=== PATIENT | female | born 1980 | race Caucasian/White ===

== ENCOUNTER 2022-12-20 13:09 | Inpatient (IN) | payer OTHER ==
[2022-12-20 14:10] VITALS: BMI 25.0
[2022-12-20] MEDS ORDERED: BENZOCAINE/MENTHOL (CHLORASEPTIC ) LOZENGE MM PRN (17:42)
[2022-12-20] MEDS ORDERED: DICYCLOMINE HCL 10 MG CAPSULE PO PRN (17:42)
[2022-12-20] MEDS ORDERED: guaiFENesin 600 MG TABLET.ER (FP) PO PRN (17:42)
[2022-12-20] MEDS ORDERED: NALOXONE HCL 0.4 MG/ML VIAL IM PRN (17:42)
[2022-12-20] MEDS ORDERED: ACETAMINOPHEN 325 MG TABLET (FP) PO PRN (17:42)
[2022-12-20] MEDS ORDERED: P-EPHED 60MG/TRIPROLIDI 2.5MG TABLET PO PRN (17:42)
[2022-12-20] MEDS ORDERED: BISMUTH SUBSALICYLATE 524 MG/30 ML PO PRN (17:42)
[2022-12-20] MEDS ORDERED: LOPERAMIDE HCL 2 MG CAPSULE PO PRN (17:42)
[2022-12-20] MEDS ORDERED: MAG HYDROX/AL HYDROX/SIMETH 30 ML UNIT-DOSE CUP PO PRN (17:42)
[2022-12-20] MEDS ORDERED: NALOXONE HCL (KLOXXADO) 8 MG SPRAY NS PRN (17:42)
[2022-12-20] MEDS ORDERED: MAGNESIUM HYDROX 2400MG/30ML ORAL SUSPENSION 30 ML CUP PO PRN (17:42)
[2022-12-20] MEDS ORDERED: POLYETHYLENE GLYCOL (HEALTHYLAX) 3350 17 GM PACKET PO PRN (17:42)
[2022-12-20] MEDS ORDERED: ONDANSETRON *ODT* 4 MG TABLET SL PRN (17:42)
[2022-12-20] MEDS ORDERED: BENZONATATE 200 MG CAPSULE PO PRN (17:42)
[2022-12-20] MEDS: LIDOCAINE 5% TOPICAL PATCH TP SCH (18:39)
[2022-12-20] MEDS ORDERED: MELATONIN 5 MG TABLETS PO SCH (22:00)
[2022-12-20] MEDS: THIAMINE HCL 100 MG TABLET (FP) PO SCH (22:29)
[2022-12-20] MEDS: BACITRACIN 0.9 GM PACKET TP SCH (22:29)
[2022-12-20] MEDS: LIDOCAINE PATCH REMOVAL MC SCH (22:36)
[2022-12-21] MEDS ORDERED: amLODIPine BESYLATE 5 MG TABLET (FP) PO SCH (10:00)
[2022-12-21] MEDS ORDERED: cloNIDine HCL 0.1 MG TABLET PO PRN (10:10)
[2022-12-21] MEDS ORDERED: methaDONE HCL 10 MG TABLET (FOR DETOX USE ONLY) PO ONE (10:10)
[2022-12-21] MEDS: PRENATAL VITAMINS W/ FOLIC ACID TABLET (FP) PO SCH (10:14)
[2022-12-21] MEDS: BACITRACIN 0.9 GM PACKET TP SCH ×2 (10:14→22:39)
[2022-12-21] MEDS: LIDOCAINE 5% TOPICAL PATCH TP SCH (10:14)
[2022-12-21] MEDS ORDERED: levETIRAcetam 250 MG TABLET PO SCH (11:00)
[2022-12-21 11:14] LABS: HEMATOCRIT 36.4 % (32.4-45.2); HEMOGLOBIN 11.9 GM/dL (10.7-15.3); MCH 27.7 pg (25.7-33.7); MCHC 32.8 g/dl (32.0-36.0); MEAN CELL VOLUME 84.4 fl (80-96); MEAN PLT VOLUME 9.1 fl (7.5-11.1); PLATELET COUNT 288 10^3/uL (134-434); RBC 4.32 M/mm3 (3.60-5.2); RDW 14.8 % (11.6-15.6); WHITE BLOOD COUNT 8.3 K/mm3 (4.0-10.0)
[2022-12-21 11:48] LABS: POTASSIUM 3.6 mmol/L (3.5-5.1)
[2022-12-21] MEDS: IBUPROFEN 600 MG TABLET (FP) PO PRN (12:06)
[2022-12-21 12:21] LABS: CALCIUM 8.7 mg/dL (8.5-10.1)
[2022-12-21 12:22] LABS: ALBUMIN 2.8 g/dl (3.4-5.0); BLOOD UREA NITROGEN 13.1 mg/dL (7-18)
[2022-12-21 12:25] LABS: CREATININE 0.8 mg/dL (0.55-1.3)
[2022-12-21 12:26] LABS: BILIRUBIN,TOTAL 0.3 mg/dL (0.2-1); TOT PROT 7.2 g/dl (6.4-8.2)
[2022-12-21] MEDS: METHOCARBAMOL 500 MG TABLET PO PRN ×2 (13:48→22:40)
[2022-12-21] MEDS: hydrOXYzine PAMOATE 25 MG CAPSULE (FP) PO PRN ×2 (13:48→22:40)
[2022-12-21] MEDS: NICOTINE POLACRILEX 2 MG GUM BUC PRN (13:49)
[2022-12-21] MEDS: MELATONIN 5 MG TABLETS PO SCH (22:39)
[2022-12-21] MEDS: LIDOCAINE PATCH REMOVAL MC SCH (22:39)
[2022-12-21] MEDS: THIAMINE HCL 100 MG TABLET (FP) PO SCH (22:39)
[2022-12-22] MEDS: cloNIDine HCL 0.1 MG TABLET PO PRN ×2 (01:06→22:49)
[2022-12-22] MEDS: IBUPROFEN 600 MG TABLET (FP) PO PRN ×3 (01:06→17:55)
[2022-12-22] MEDS: PRENATAL VITAMINS W/ FOLIC ACID TABLET (FP) PO SCH (10:06)
[2022-12-22] MEDS: BACITRACIN 0.9 GM PACKET TP SCH ×2 (10:06→22:08)
[2022-12-22] MEDS: amLODIPine BESYLATE 10 MG TABLET (FP) PO SCH (10:06)
[2022-12-22] MEDS: LIDOCAINE 5% TOPICAL PATCH TP SCH (10:06)
[2022-12-22] MEDS: KETOCONAZOLE 2% CREAM - 60GM TUBE TP SCH (12:25)
[2022-12-22] MEDS: CEPHALEXIN MONOHYDRATE 500 MG CAPSULE (UD) PO SCH ×3 (12:25→23:55)
[2022-12-22] MEDS: NICOTINE 21 MG/24 HOURS TOPICAL PATCH TD PRN (15:33)
[2022-12-22] MEDS: hydrOXYzine PAMOATE 25 MG CAPSULE (FP) PO PRN (17:55)
[2022-12-22] MEDS: METHOCARBAMOL 500 MG TABLET PO PRN (22:08)
[2022-12-22] MEDS: THIAMINE HCL 100 MG TABLET (FP) PO SCH (22:08)
[2022-12-22] MEDS: MELATONIN 5 MG TABLETS PO SCH (22:08)
[2022-12-22] MEDS: LIDOCAINE PATCH REMOVAL MC SCH (22:08)
[2022-12-22] MEDS: IBUPROFEN 400 MG TABLET (FP) PO PRN (23:06)
[2022-12-23] MEDS: CEPHALEXIN MONOHYDRATE 500 MG CAPSULE (UD) PO SCH ×3 (05:19→17:26)
[2022-12-23] MEDS: IBUPROFEN 400 MG TABLET (FP) PO PRN (05:24)
[2022-12-23] MEDS: KETOCONAZOLE 2% CREAM - 60GM TUBE TP SCH (09:47)
[2022-12-23] MEDS: LIDOCAINE 5% TOPICAL PATCH TP SCH (09:47)
[2022-12-23] MEDS: amLODIPine BESYLATE 10 MG TABLET (FP) PO SCH (09:48)
[2022-12-23] MEDS: BACITRACIN 0.9 GM PACKET TP SCH ×2 (09:48→22:10)
[2022-12-23] MEDS: PRENATAL VITAMINS W/ FOLIC ACID TABLET (FP) PO SCH (09:49)
[2022-12-23] MEDS ORDERED: methaDONE HCL 10 MG TABLET (FOR DETOX USE ONLY) PO ONE (10:00)
[2022-12-23] MEDS: NICOTINE 21 MG/24 HOURS TOPICAL PATCH TD PRN (11:15)
[2022-12-23] MEDS: IBUPROFEN 600 MG TABLET (FP) PO PRN ×2 (12:52→20:18)
[2022-12-23] MEDS: METHOCARBAMOL 500 MG TABLET PO PRN (22:10)
[2022-12-23] MEDS: hydrOXYzine PAMOATE 25 MG CAPSULE (FP) PO PRN (22:10)
[2022-12-23] MEDS: THIAMINE HCL 100 MG TABLET (FP) PO SCH (22:11)
[2022-12-23] MEDS: LIDOCAINE PATCH REMOVAL MC SCH (22:11)
[2022-12-23] MEDS: MELATONIN 5 MG TABLETS PO SCH (22:11)
[2022-12-24] MEDS: CEPHALEXIN MONOHYDRATE 500 MG CAPSULE (UD) PO SCH ×5 (00:15→23:57)
[2022-12-24] MEDS: IBUPROFEN 600 MG TABLET (FP) PO PRN ×3 (02:11→18:42)
[2022-12-24] MEDS: PRENATAL VITAMINS W/ FOLIC ACID TABLET (FP) PO SCH (10:11)
[2022-12-24] MEDS: KETOCONAZOLE 2% CREAM - 60GM TUBE TP SCH (10:12)
[2022-12-24] MEDS: BACITRACIN 0.9 GM PACKET TP SCH ×2 (10:12→22:04)
[2022-12-24] MEDS: LIDOCAINE 5% TOPICAL PATCH TP SCH (10:13)
[2022-12-24] MEDS: amLODIPine BESYLATE 10 MG TABLET (FP) PO SCH (10:16)
[2022-12-24] MEDS: NICOTINE 21 MG/24 HOURS TOPICAL PATCH TD PRN (10:35)
[2022-12-24] MEDS: MELATONIN 5 MG TABLETS PO SCH (22:03)
[2022-12-24] MEDS: THIAMINE HCL 100 MG TABLET (FP) PO SCH (22:03)
[2022-12-24] MEDS: LIDOCAINE PATCH REMOVAL MC SCH (22:03)
[2022-12-24] MEDS: METHOCARBAMOL 500 MG TABLET PO PRN (22:05)
[2022-12-24] MEDS: hydrOXYzine PAMOATE 25 MG CAPSULE (FP) PO PRN (22:05)
[2022-12-25] MEDS: CEPHALEXIN MONOHYDRATE 500 MG CAPSULE (UD) PO SCH ×4 (05:31→23:53)
[2022-12-25] MEDS ORDERED: methaDONE HCL 10 MG TABLET (FOR DETOX USE ONLY) PO ONE (10:00)
[2022-12-25] MEDS: LIDOCAINE 5% TOPICAL PATCH TP SCH (10:24)
[2022-12-25] MEDS: amLODIPine BESYLATE 10 MG TABLET (FP) PO SCH (10:24)
[2022-12-25] MEDS: hydrOXYzine PAMOATE 25 MG CAPSULE (FP) PO PRN ×2 (10:30→22:24)
[2022-12-25] MEDS: IBUPROFEN 400 MG TABLET (FP) PO PRN (10:30)
[2022-12-25] MEDS: METHOCARBAMOL 500 MG TABLET PO PRN ×2 (10:30→22:28)
[2022-12-25] MEDS: BACITRACIN 0.9 GM PACKET TP SCH ×2 (10:41→22:27)
[2022-12-25] MEDS: KETOCONAZOLE 2% CREAM - 60GM TUBE TP SCH (10:41)
[2022-12-25] MEDS: PRENATAL VITAMINS W/ FOLIC ACID TABLET (FP) PO SCH (10:42)
[2022-12-25] MEDS: NICOTINE POLACRILEX 2 MG GUM BUC PRN (10:42)
[2022-12-25] MEDS: NICOTINE 21 MG/24 HOURS TOPICAL PATCH TD PRN (10:44)
[2022-12-25] MEDS: THIAMINE HCL 100 MG TABLET (FP) PO SCH (22:24)
[2022-12-25] MEDS: MELATONIN 5 MG TABLETS PO SCH (22:24)
[2022-12-25] MEDS: IBUPROFEN 600 MG TABLET (FP) PO PRN (22:25)
[2022-12-25] MEDS: LIDOCAINE PATCH REMOVAL MC SCH (22:26)
[2022-12-26] MEDS: CEPHALEXIN MONOHYDRATE 500 MG CAPSULE (UD) PO SCH (05:29)
[2022-12-26] MEDS: IBUPROFEN 400 MG TABLET (FP) PO PRN (05:29)
[2022-12-26 05:53] VITALS: RESP 18
[2022-12-26 10:00] VITALS: BP 110/68; PULSE 94; TEMP 97.6
[2022-12-26] MEDS: LIDOCAINE 5% TOPICAL PATCH TP SCH (10:15)
[2022-12-26] MEDS: BACITRACIN 0.9 GM PACKET TP SCH (10:15)
[2022-12-26] MEDS: KETOCONAZOLE 2% CREAM - 60GM TUBE TP SCH (10:16)
[2022-12-26] MEDS: amLODIPine BESYLATE 10 MG TABLET (FP) PO SCH (10:16)
[2022-12-26] MEDS: PRENATAL VITAMINS W/ FOLIC ACID TABLET (FP) PO SCH (10:35)
== END 2022-12-26 10:48 | disposition home or self-care (01) | DRG 773 ==
LOC: YASAS 13:09 → Y6N 18:04
PROVIDERS: ADMIT Allergy & Immunology; ATTEND Surgery
PROC: HZ2ZZZZ Detoxification Services for Substance Abuse Treatment (ICD-10-PCS; principal; 2022-12-20)
DX: F11.23 Opioid dependence with withdrawal (principal); F17.210 Nicotine dependence, cigarettes, uncomplicated; F19.282 Other psychoactive substance dependence with psychoactive substance-induced sleep disorder; F19.24 Other psychoactive substance dependence with psychoactive substance-induced mood disorder; L02.411 Cutaneous abscess of right axilla
CPT/HCPCS: 36415; 71101-TC-RT-FY; 80053; 81025; 83036; 85027; 86780; 87635

== ENCOUNTER 2024-03-28 14:03 | Inpatient (IN) | payer OTHER ==
[2024-03-28 14:35] VITALS: BMI 24.3
[2024-03-28] MEDS ORDERED: guaiFENesin 600 MG TABLET.ER (FP) PO PRN (15:07)
[2024-03-28] MEDS ORDERED: BENZOCAINE/MENTHOL (CHLORASEPTIC ) LOZENGE MM PRN (15:07)
[2024-03-28] MEDS ORDERED: NALOXONE (NARCAN) HCL 4 MG/0.1 ML SPRAY NS PRN (15:07)
[2024-03-28] MEDS ORDERED: BENZONATATE 200 MG CAPSULE PO PRN (15:07)
[2024-03-28] MEDS ORDERED: LOPERAMIDE HCL 2 MG CAPSULE PO PRN (15:07)
[2024-03-28] MEDS ORDERED: DICYCLOMINE HCL 10 MG CAPSULE PO PRN (15:07)
[2024-03-28] MEDS ORDERED: P-EPHED 60MG/TRIPROLIDI 2.5MG TABLET PO PRN (15:07)
[2024-03-28] MEDS ORDERED: POLYETHYLENE GLYCOL (HEALTHYLAX) 3350 17 GM PACKET PO PRN (15:07)
[2024-03-28] MEDS ORDERED: BISMUTH SUBSALICYLATE 262 MG/15 ML BTL PO PRN (15:07)
[2024-03-28] MEDS ORDERED: ACETAMINOPHEN 325 MG TABLET (FP) PO PRN (15:07)
[2024-03-28] MEDS ORDERED: MAG HYDROX/AL HYDROX/SIMETH 30 ML UNIT-DOSE CUP PO PRN (15:07)
[2024-03-28] MEDS ORDERED: ONDANSETRON *ODT* 4 MG TABLET SL PRN (15:07)
[2024-03-28] MEDS ORDERED: MAGNESIUM HYDROX 2400MG/30ML ORAL SUSPENSION 30 ML CUP PO PRN (15:07)
[2024-03-28] MEDS ORDERED: NALOXONE (NYS OPIOID OVERDOSE PROGRAM) 4 MG/0.1 ML SPRAY NS PRN (15:07)
[2024-03-28] MEDS ORDERED: methaDONE HCL 10 MG TABLET (FOR DETOX USE ONLY) ONE (15:36)
[2024-03-28] MEDS: methaDONE HCL 10 MG TABLET (FOR DETOX USE ONLY) PO ONE (15:39)
[2024-03-28] MEDS: METHOCARBAMOL 500 MG TABLET PO PRN (17:59)
[2024-03-28] MEDS: IBUPROFEN 600 MG TABLET (FP) PO PRN (18:00)
[2024-03-28] MEDS: NICOTINE POLACRILEX 2 MG GUM BUC PRN (18:15)
[2024-03-28] MEDS: MELATONIN 5 MG TABLETS PO SCH (21:38)
[2024-03-28] MEDS: cloNIDine HCL 0.1 MG TABLET PO PRN (21:38)
[2024-03-28] MEDS: THIAMINE 100 MG TABLET PO SCH (21:38)
[2024-03-28] MEDS: NICOTINE POLACRILEX 2 MG LOZENGE BC PRN (21:40)
[2024-03-29] MEDS: PRENATAL VITAMINS W/ FOLIC ACID TABLET (FP) PO SCH (09:14)
[2024-03-29] MEDS: ELVITEG/COB/EMTRI/TENOF (GENVOYA) TABLET PO SCH (10:12)
[2024-03-29] MEDS: amLODIPine BESYLATE 10 MG TABLET (FP) PO SCH (10:12)
[2024-03-30] MEDS: IBUPROFEN 400 MG TABLET (FP) PO PRN (03:59)
[2024-03-30] MEDS: methaDONE HCL 10 MG TABLET (FOR DETOX USE ONLY) PO ONE (09:37)
[2024-03-30 11:27] LABS: HEMATOCRIT 38.7 % (32.4-45.2); HEMOGLOBIN 12.7 GM/dL (10.7-15.3); MCH 28.8 pg (25.7-33.7); MCHC 32.8 g/dl (32.0-36.0); MEAN CELL VOLUME 87.8 fl (80-96); MEAN PLT VOLUME 9.6 fl (7.5-11.1); PLATELET COUNT 305 10^3/uL (134-434); RBC 4.41 M/mm3 (3.60-5.2); RDW 14.7 % (11.6-15.6)
[2024-03-30 11:50] LABS: POTASSIUM 3.9 mmol/L (3.5-5.1)
[2024-03-30 11:52] LABS: CALCIUM 9.1 mg/dL (8.5-10.1)
[2024-03-30 11:53] LABS: ALBUMIN 3.3 g/dl (3.4-5.0); BLOOD UREA NITROGEN 19.6 mg/dL (7-18)
[2024-03-30 11:56] LABS: CREATININE 0.9 mg/dL (0.55-1.3)
[2024-03-30 11:57] LABS: BILIRUBIN,TOTAL 0.2 mg/dL (0.2-1); TOT PROT 6.8 g/dl (6.4-8.2)
[2024-04-01] MEDS: methaDONE HCL 10 MG TABLET (FOR DETOX USE ONLY) PO ONE (09:34)
[2024-04-02 09:37] VITALS: BP 109/72; PULSE 82; RESP 18; TEMP 98
== END 2024-04-02 10:12 | disposition home or self-care (01) | DRG 773 ==
LOC: YASAS 14:03 → Y6N 15:31
PROVIDERS: ADMIT Allergy & Immunology; ATTEND Surgery
PROC: HZ2ZZZZ Detoxification Services for Substance Abuse Treatment (ICD-10-PCS; principal; 2024-03-28)
DX: F11.23 Opioid dependence with withdrawal (principal); F14.20 Cocaine dependence, uncomplicated; F17.210 Nicotine dependence, cigarettes, uncomplicated; Z21 Asymptomatic human immunodeficiency virus [HIV] infection status; I10 Essential (primary) hypertension; Z59.00 Homelessness unspecified
CPT/HCPCS: 36415; 80053; 80305; 81025; 85027; 86780; 93005; 93010